=== PATIENT | male | born 1980 | race Caucasian/White ===

== ENCOUNTER 2016-07-03 06:27 | Emergency (ER) | payer OTHER ==
[~2016-07-03] VITALS: Ht 165.1 cm; Wt 76.9 kg
[2016-07-03 06:29] VITALS: BP 121/77
[2016-07-03] MEDS ORDERED: PROPARACAINE OPHTH 0.5%, 15ML EACHEYE ONE (07:30)
[2016-07-03] MEDS ORDERED: FLUORESCEIN OPHTHALMIC 1 MG STRIP EACHEYE ONE (07:30)
[2016-07-03] MEDS ORDERED: FLUORESCEIN OPHTHALMIC 1 MG STRIP ONE (07:33)
[2016-07-03] MEDS ORDERED: PROPARACAINE OPHTH 0.5%, 15ML ONE (07:33)
== END 2016-07-03 08:02 | disposition home or self-care (01) ==
LOC: ED 07:56
DX: S05.02XA Injury of conjunctiva and corneal abrasion without foreign body, left eye, initial encounter (principal); X58.XXXA Exposure to other specified factors, initial encounter; Y93.89 Activity, other specified; Y99.8 Other external cause status; Y92.89 Other specified places as the place of occurrence of the external cause
CPT/HCPCS: 99283